=== PATIENT | male | born 1990 | race African-American/Black ===

== ENCOUNTER 2022-07-25 12:49 | Emergency (ER) | payer SELFPAY ==
[~2022-07-25] VITALS: Ht 172.7 cm; Wt 77.1 kg
--- NOTE | 2022-07-25 13:22 | NUR ---
cough and congestion x 4 days, nose bleed on/off x 2 days. 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
[2022-07-25] MEDS ORDERED: PSEU120T83 PO ×2 (13:35→14:06)
[2022-07-25] MEDS ORDERED: AZIT250T PO ×2 (13:35→14:06)
[2022-07-25 14:12] VITALS: BP 131/92
--- NOTE | 2022-07-25 14:22 | NUR ---
Patient discharged to home in stable condition. Written and verbal after care instructions given. Patient verbalizes understanding of instruction.
== END 2022-07-25 14:22 | disposition home or self-care (01) ==
LOC: ER 12:49
DX: J32.9 Chronic sinusitis, unspecified (principal)

== ENCOUNTER 2024-04-06 12:04 | Emergency (ER) | payer MEDICAID ==
[~2024-04-06] VITALS: Ht 172.7 cm; Wt 81.6 kg
[~2024-04-06 12:04] MED LIST: AZIT250T PO; PSEU120T83 PO
[2024-04-06] MEDS ORDERED: FLUT16SP BNOSTRILS (13:08)
[2024-04-06 13:59] VITALS: BP 117/73; TEMP 97.9; O2SAT 99
== END 2024-04-06 13:59 | disposition home or self-care (01) ==
LOC: ER 12:04
DX: J06.9 Acute upper respiratory infection, unspecified (principal); B97.89 Other viral agents as the cause of diseases classified elsewhere; J34.89 Other specified disorders of nose and nasal sinuses